=== PATIENT | male | born 1950 | race Caucasian/White ===

== ENCOUNTER 2025-03-11 15:20 | Emergency (ER) | payer OTHER ==
[~2025-03-11] VITALS: Ht 170.2 cm; Wt 68.0 kg
[2025-03-11] MEDS ORDERED: ACETAMINOPHEN 650 MG/SUPP.RECT RC ONE (15:55)
[2025-03-11] MEDS: ACETAMINOPHEN 650 MG/SUPP.RECT RC ONE (16:00)
[2025-03-11] MEDS: IV NS 0.9% 1,000 ML BAG IV ONE ×2 (16:00→19:30)
[2025-03-11] MEDS: PIPERACILLIN /TAZOBACTAM 3.375 G in IV D5W 50 ML IV ONE (16:40)
[2025-03-11] MEDS: VANCOMYCIN 1 GM in IV D5W 250 ML IV ONE (17:00)
[2025-03-11 17:01] LABS: PLATELET COUNT (AUTO) 215 K/uL (150-450); RED BLOOD CELL COUNT(AUTO) 3.44 MIL/uL (4.5-6.0); RED CELL DISTRIBUTION WIDTH 14.7 % (11.5-15.0); WHITE BLOOD COUNT (AUTO) 2.4 K/uL (4.3-11.0)
[2025-03-11 17:08] LABS: APPEARANCE,URINE CLEAR (CLEAR); BLOOD, URINE TRACE-INTA Ery/uL (NEGATIVE); LEUKOCYTE ESTERASE ,URINE NEGATIVE (NEGATIVE); NITRITE, URINE NEGATIVE (NEGATIVE); UGLUCOSE NEGATIVE (NEGATIVE)
[2025-03-11 17:19] LABS: INR 2.4 (0.91-1.10)
[2025-03-11 17:23] LABS: AMPHETAMINE, URINE NEGATIVE (NEGATIVE); BARBITURATE, URINE NEGATIVE (NEGATIVE); BENZODIAZEPINE, URINE NEGATIVE (NEGATIVE); CANNABINOID, URINE NEGATIVE (NEGATIVE); COCCAINE, URINE NEGATIVE (NEGATIVE)
[2025-03-11 17:29] LABS: OPIATE, URINE POSITIVE (NEGATIVE)
[2025-03-11 17:47] LABS: ADD URINE CULTURE YES; COARSE GRANULAR CASTS,URINE Moderate /LPF (None Seen); SQUAMOUS EPITHELIAL CELL,UR Moderate /HPF (None Seen)
[2025-03-11] MEDS: ASPIRIN 300 MG/SUPP.RECT RC ONE (17:57)
[2025-03-11 18:57] LABS: SERUM AMMONIA 109 umol/L (11-32)
[2025-03-11 19:02] LABS: ALCOHOL, BLOOD < 3 mg/dL (0-10); ASPARTATE AMINOTRANSFERASE 71 U/L (15-37); CALCIUM, SERUM 8.6 mg/dL (8.5-10.1); CREATININE 1.3 mg/dL (0.6-1.3); TOTAL PROTEIN, SERUM 7.8 g/dL (6.4-8.2); UREA NITROGEN, BLOOD 43 mg/dL (7-18)
[2025-03-11 19:04] LABS: SODIUM SERUM 120 mmol/L (136-145)
[2025-03-11] MEDS: LACTULOSE 10 G/15 ML UDC (PYXIS) PR ONE (19:30)
[2025-03-11 19:33] LABS: LACTIC ACID 3.2 mmol/L (0.4-2.0)
[2025-03-11 20:33] VITALS: TEMP 98.9
[2025-03-11 23:31] VITALS: BP 110/65; O2SAT 99
[2025-03-11] MEDS ORDERED: SITA50TA PO (23:49)
[2025-03-11] MEDS ORDERED: VALP250C3 PO (23:49)
[2025-03-11] MEDS ORDERED: AMOX500C2 PO (23:49)
[2025-03-11] MEDS ORDERED: RISP1TAB97 PO (23:49)
[2025-03-11] MEDS ORDERED: ACET-73 PO (23:49)
== END 2025-03-12 00:05 | disposition short-term general hospital (02) ==
LOC: ER 15:26
DX: R40.4 Transient alteration of awareness (principal); Z79.899 Other long term (current) drug therapy; Z20.822 Contact with and (suspected) exposure to COVID-19
CPT/HCPCS: 99291; 96365; 96361; 96375; 93005; 87804 ×2; 71045; 70450; 82140; 84145; 85025; 80048; 87040 ×2; 87086; 83605 ×2; 80076; 81001; 36415; 84443; 84484 ×2; 85730; 82962; 87426; 80143; 80320; 80307; J3373; J2543; J7060; J7030 ×2; G0480